=== PATIENT | female | born 1985 | race Caucasian/White ===

== ENCOUNTER → 2021-03-17 | Day surgery (SDC) | payer OTHER ==
[~2021-03-17] MED LIST: BUSPIRONE HCL15 M1 PO; BUSPIRONE HCL15 MG PO; CITALOPRAM HBR40 MG PO; DESYREL50 MG PO; GABAPENTIN600 MG PO; KRATOM PO; LAMICTAL (BLUE)25 MG PO
[2021-03-17 08:24] LABS: HCG (URINE) SCREEN NEGATIVE (NEGATIVE)
[2021-03-17 09:16] LABS: BASOPHIL 0.3 % (0-2); EOSINOPHIL 0.6 % (0-5); HCT 37.7 % (37.0-47.0); HGB 12.5 g/dl (12.5-16.0); LYMPHOCYTE 11.2 % (15-48); MCH 29.6 pg (25.0-31.0); MCHC 33.2 g/dL (32.0-36.0); MCV 89.1 fL (78.0-100.0); MONOCYTE 10.6 % (0-12); MPV 11.1 fL (6.0-9.5); NEUTROPHIL 76.7 % (41-80); NRBC 0; PLT 199 K/uL (150-400); RBC 4.23 M/uL (4.20-5.40); RDW 14.1 % (11.5-14.0); WBC 7.3 K/uL (4.0-10.5)
[2021-03-17 09:29] LABS: INR 1.07 (0.9-1.2); PROTHROMBIN TIME 13.2 SECONDS (11.4-13.6); PTT 31.9 SECONDS (22.2-34.7)
--- NOTE | 2021-03-17 10:00 | NUR ---
XRAY REVIEWED BY CECILIA AND DR. CABRERA, CASE CANCELLED DUE TO ABNORMAL CHEST XRAY.
== END | disposition home or self-care (01) ==
LOC: FAS 08:06
PROVIDERS: Oral & Maxillofacial Surgery
DX: K02.63 Dental caries on smooth surface penetrating into pulp (principal); K05.30 Chronic periodontitis, unspecified; J18.9 Pneumonia, unspecified organism; F60.9 Personality disorder, unspecified; F41.8 Other specified anxiety disorders; F10.20 Alcohol dependence, uncomplicated; F43.10 Post-traumatic stress disorder, unspecified; Z88.0 Allergy status to penicillin; Z88.1 Allergy status to other antibiotic agents; Z53.09 Procedure and treatment not carried out because of other contraindication; Z20.822 Contact with and (suspected) exposure to COVID-19
CPT/HCPCS: 36415; 71045; 84703; 85025; 85610; 85730; 93005; J1100; J2405; J2704; J2710; J3010; J7120

== ENCOUNTER → 2021-04-28 | Day surgery (SDC) | payer OTHER ==
[~2021-04-28] VITALS: Ht 170.2 cm; Wt 135.2 kg
== END | disposition home or self-care (01) ==
LOC: FAS 10:10
DX: Z53.09 Procedure and treatment not carried out because of other contraindication (principal)
CPT/HCPCS: J7120

== ENCOUNTER → 2021-06-06 | Day surgery (SDC) | payer OTHER ==
[~2021-06-06] VITALS: Ht 170.2 cm; Wt 135.2 kg
[2021-06-06 09:53] LABS: HCG (URINE) SCREEN NEGATIVE (NEGATIVE)
[2021-06-06 10:13] LABS: BASOPHIL 0.5 % (0-2); EOSINOPHIL 1.5 % (0-5); HCT 41.6 % (37.0-47.0); HGB 13.6 g/dl (12.5-16.0); LYMPHOCYTE 20.7 % (15-48); MCH 30.4 pg (25.0-31.0); MCHC 32.7 g/dL (32.0-36.0); MCV 93.1 fL (78.0-100.0); MONOCYTE 6.7 % (0-12); MPV 10.9 fL (6.0-9.5); NEUTROPHIL 69.7 % (41-80); NRBC 0; PLT 175 K/uL (150-400); RBC 4.47 M/uL (4.20-5.40); RDW 15.2 % (11.5-14.0); WBC 9.7 K/uL (4.0-10.5)
[2021-06-06 10:21] LABS: INR 0.99 (0.9-1.2); PROTHROMBIN TIME 12.5 SECONDS (11.8-13.4); PTT 27.8 SECONDS (24.4-34.7)
== END | disposition home or self-care (01) ==
LOC: FAS 09:32
PROVIDERS: Oral & Maxillofacial Surgery
DX: K02.9 Dental caries, unspecified (principal); K04.7 Periapical abscess without sinus; F41.9 Anxiety disorder, unspecified; F32.9 Major depressive disorder, single episode, unspecified; F60.9 Personality disorder, unspecified; F10.20 Alcohol dependence, uncomplicated; Z88.0 Allergy status to penicillin; Z88.1 Allergy status to other antibiotic agents; R94.31 Abnormal electrocardiogram [ECG] [EKG]; F17.210 Nicotine dependence, cigarettes, uncomplicated; E66.01 Morbid (severe) obesity due to excess calories
CPT/HCPCS: D7140; D7210; 36415; 71045; 84703; 85025; 85610; 85730; 93005; J1100; J1170; J2250; J2405; J2704; J3010; J3490; J7120